=== PATIENT | female | born 1990 | race Caucasian/White ===

== ENCOUNTER → 2017-11-07 | Outpatient (CLI) | payer OTHER | LOC: COL.RAD 07:30 | DX: R10.11 Right upper quadrant pain (principal); R11.0 Nausea ==

== ENCOUNTER → 2018-01-22 | Outpatient (CLI) | payer OTHER | LOC: MC.RAD 01-05 14:15 | DX: N64.4 Mastodynia (principal) ==

== ENCOUNTER 2018-12-18 23:42 | Emergency (ER) | payer OTHER ==
[~2018-12-18] VITALS: Ht 170.2 cm; Wt 75.0 kg
[~2018-12-18 23:42] MED LIST: ALDACTONE 25MG25 M1 PO; AMOXICILLIN875 MG PO; ANTIVERT 12.512.5 MG PO; FERROUS SU325 MG/TAB PO; HUMALOG100 U/ML SQ; LANTUS100 U/ML SC; LASIX 20MG TABL20 MG PO; MOTRIN 600600 MG/TAB PO; NORCO 325 MG-7.1 TAB PO; NOVOLOG 100U100 U/M1 SC; PERCOCET 325 MG1 TA2 PO; PRENATAL PO; TOPROL XL 25MG25 MG PO; ZESTRIL 5MG5 MG PO; ZOFRAN ODT4 MG PO
[2018-12-18 23:45] VITALS: TEMP 97.9
[2018-12-19 00:34] LABS: BASO # 0.1 (0.0-0.2); BASO % 0.9 % (0.0-2.0); EOS # 0.3 (0.0-0.7); EOS % 2.6 % (0-4.0); GRAN % 60.4 % (42.2-75.2); HEMATOCRIT 35.7 % (37.0-47.0); HEMOGLOBIN 12.2 g/dl (12.5-16.0); LYMPH # 2.9 (1.2-3.4); LYMPH % 28.6 % (20.0-51.0); MEAN CELL VOLUME 90 fl (80.0-100.0); MEAN CORPUSCULAR HEMOGLOBIN 31 pg (27.0-31.0); MEAN CORPUSCULAR HGB CONC 34 g/dl (33.0-37.0); MEAN PLATELET VOLUME 9.5 fl (7.4-10.4); MONO # 0.7 (0.1-0.6); MONO % 7.3 % (1.7-9.3); PLATELET COUNT 229 K/mm3 (130-400); RED BLOOD COUNT 3.95 M/mm3 (4.10-5.30); REDCELL DISTRIBUTION WIDTH-CV 11.8 % (11.5-14.5)
[2018-12-19 00:43] LABS: ANION GAP 11 mmol/L (7-16); BLOOD UREA NITROGEN 11 mg/dL (7-17); CALCIUM 9.2 mg/dL (8.4-10.2); CARBON DIOXIDE 27 mmol/L (22-30); CHLORIDE 95 mmol/L (98-107); CREATININE, serum 0.71 (0.52-1.25); POTASSIUM 4.1 mmol/L (3.4-5.0); SODIUM 132 mmol/L (137-145)
[2018-12-19 00:46] LABS: ACETONE,SERUM NEGATIVE; GLUCOSE 564 mg/dL (74-106)
[2018-12-19 01:47] VITALS: BP 106/67; PULSE 97
== END 2018-12-19 01:47 | disposition home or self-care (01) ==
LOC: COL.ER 23:42
PROVIDERS: Emergency Medicine
DX: S80.11XA Contusion of right lower leg, initial encounter (principal); E10.9 Type 1 diabetes mellitus without complications; W22.8XXA Striking against or struck by other objects, initial encounter; Y92.59 Other trade areas as the place of occurrence of the external cause
CPT/HCPCS: J1815; J7030

== ENCOUNTER → 2019-08-09 | Outpatient (CLI) | payer OTHER | LOC: COL.VAS 11:47 | DX: Z13.6 Encounter for screening for cardiovascular disorders (principal); R60.0 Localized edema ==